=== PATIENT | male | born 1960 ===

== ENCOUNTER 2017-02-14 20:01 | Emergency (ER) | payer MEDICAID, MEDICARE ==
[~2017-02-14 20:01] MED LIST: AMLO10TA2 PO; METO50TA2 PO
--- NOTE | 2017-02-14 20:21 | PHYS DOC ---
General Chief Complaint: cough/sob Stated Complaint: lightheaded,SOA Time Seen by MD: 20:17 Source: patient, family (daughter) Exam Limitations: no limitations Problems: History of Present Illness Initial Comments Pt is 56/M to ED c/o SOB/cough/lightheaded. Pt states since yesterday morning he's had dry cough, feeling like he cannot take a deep breath, and malaise/lightheaded. Pt has h/o PA/CAD, states 2004 had PA was tx cardiac stents x 2. Again 2015 pt with CP and elevated troponin, balloon angioplasty x 2 vessels. Pt states he stopped taking meds about 5 months ago without physician consent. States he just relocated here to [place] from [place], has not established with PCP or internal audit manager since moving in with his daughter here locally. ED VS: 98.5, 92, 20, 133/85, 96% RA Past 24 hours symptoms are not at all similar to prior PA sx but are still CP equivalents of greater than 24 hours duration. Pt denies cp/arm or neck sx/diaphoresis/n/v/fever/chills/GERBER/myalgias. Former smoker, quit past year. Still uses marijuana. Timing/Duration: 24 hours Severity: moderate Modifying Factors: worse with movement, improves with rest Associated Symptoms: malaise, shortness of breath, other Allergies: Coded Allergies: Penicillins (Unverified Allergy, Unknown, Rash, 11/10/14) Past Medical History Medical History: other (dementia, HLP, HTN, chronic upper and lower back pain, spinal stenosis, CAD, DM, chronic pain) Surgical History: angioplasty (x2 2014), other (Coronary stents x 3 2003, R hand) Social History Smoker: cigarettes Alcohol: none Drugs: marijuana Review of Systems Constitutional: denies chills, denies diaphoresis, denies fever, denies malaise EENTM: denies eye pain, denies ear pain, nose congestiondenies throat pain, denies throat swelling Respiratory: coughdenies orthopnea, shortness of breathdenies stridor, wheezing Cardiovascular: denies chest pain, denies edema, denies palpitations, denies syncope Gastrointestinal: denies abdominal pain, denies constipation, denies diarrhea, denies nausea, denies vomiting Genitourinary: denies dysuria, denies frequency, denies hematuria Musculoskeletal: see HPI back paindenies joint swelling, denies neck pain Psychiatric/Neurological: denies headache, denies numbness, denies paresthesia , denies weakness Hematologic/Lymphatic: denies blood clots, denies easy bleeding, denies easy bruising Physical Exam General Appearance: WD/WN, no apparent distress Eyes: bilateral eye EOMI, bilateral eye PERRL, bilateral eye normal inspection Ear, Nose, Throat: hearing grossly normal, normal ENT inspection, normal pharynx Neck: non-tender, supple Respiratory: chest non-tender, no respiratory distress, decreased breath sounds , wheezing, other (wheeze b/l with decreased BS b/l and fair to good air movement) Cardiovascular: normal peripheral pulses, regular rate, rhythm, no edema Gastrointestinal: normal bowel sounds, non tender, soft Back: no CVA tenderness, no vertebral tenderness Extremities: normal range of motion, non-tender, normal inspection, no pedal edema, no calf tenderness Neurologic/Psychiatric: picker and packer II-XII nml as tested, no motor/sensory deficits, alert, normal mood/affect, oriented x 3 Skin: normal color, warm/dry Orders, Labs, Meds EKG: NSR 85 bpm, no STEMI Chest AP: COPD changes, no acute cardiopulmonary process Pertinent Labs: overall reassuring workup in ED. UDS + marijuana, lipase 1006 Further inquiry, pt denies abdominal pains, RUQ pain, n/v, no cholecystitis or pancreatitis symptoms. Pt offered CT/US evaluations, declined. Sx have been present over 24 hours, acute coronary syndrome ruled out. Pt with improved BS, faint diffuse wheeze, resolution of upper back discomfort with duoneb. I discussed likelihood sx COPD exacerbation. Discussed possible observation admission pt refuses is reassured not ACS. Agrees to establish care PCP cardio locally, he expressed agreement and understanding with treatment plan. Advised to stop smoking marijuana. Pt also understands he needs to f/u for lipase recheck next few days. Departure Time of Disposition: 23:12 Disposition: 01 HOME, SELF-CARE Diagnosis: COPD Exacerbation, Tobaccoism, elevated lipase Condition: STABLE Patient Instructions: Chronic Obstructive Pulmonary Disease Exacerbation, Easy- to-Read, Lipase, Smoking, You Can Quit, [id number] Additional Instructions: Rest, no strenuous activity. Stop smoking, seek medical assistance if necessary. Rx: albuterol nebulizer vials, prednisone, norco 5mg #10 You need to establish care and follow with primary care doctor and internal audit manager. Call tomorrow to schedule next available appointment. Return to ED with new or changing symptoms. JANELLE BIRMINGHAM DO Feb 14, 2017 20:21
--- NOTE | 2017-02-14 20:23 | EKG ---
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
[2017-02-14] MEDS ORDERED: NITROGLYCERIN SUBLINGUAL 0.4 MG BOTTLE OF 25. SL PRN (20:30)
[2017-02-14] MEDS ORDERED: ASPIRIN 81 MG TAB.CHEW PO ONE (20:45)
[2017-02-14 20:52] LABS: BASO # 0.1 x10^3/uL (0.0-0.2); BASO % 1 % (0-3); EOS # 0.2 x10^3/uL (0.0-0.7); EOS % 3 % (0-3); LYMPH # 2.1 x10^3/uL (1.0-4.8); LYMPH % 26 % (24-48); MEAN CORPUSCULAR HEMOGLOBIN 30 pg (25-35); MEAN CORPUSCULAR HGB CONC 33 g/dL (31-37); MEAN CORPUSCULAR VOLUME 91 fL (79-100); MONO # 0.8 x10^3/uL (0.0-1.1); MONO % 10 % (0-9); NEUT % 60 % (31-73); PLATELET COUNT 207 x10^3/uL (140-400); RED BLOOD COUNT 5.28 x10^6/uL (4.30-5.70); RED CELL DISTRIBUTION WIDTH 12.9 % (11.5-14.5); WHITE BLOOD COUNT 8.3 x10^3/uL (4.0-11.0)
[2017-02-14 21:08] LABS: AMPHETAMINE/METHAMPHETAMINE NEG (NEG); BARBITURATES NEG (NEG); BENZODIAZEPINES NEG (NEG); CANNABINOIDS POS (NEG); COCAINE NEG (NEG); METHADONE NEG (NEG); OPIATES NEG (NEG); PHENCYCLIDINE NEG (NEG)
[2017-02-14 21:15] LABS: POTASSIUM ISTAT 4.1 mmol/L (3.5-5.0)
[2017-02-14 21:15] LABS: ALBUMIN 3.9 g/dL (3.4-5.0); DIRECT BILIRUBIN 0.1 mg/dL (0.0-0.2); MAGNESIUM 2.1 mg/dL (1.8-2.4); TOTAL BILIRUBIN 0.5 mg/dL (0.2-1.0); TOTAL PROTEIN 7.8 g/dL (6.4-8.2)
[2017-02-14] MEDS ORDERED: IPRATRPIUM/ALBUTEROL 0.5/2.5MG 3 ML NEBU. NEB ONE (21:15)
[2017-02-14] MEDS ORDERED: methylPREDNISolone SOD SUCC PF 125 MG/2 ML VIAL. IV ONE (21:15)
[2017-02-14 21:26] LABS: BILIRUBIN,URINE NEG (NEG); CLARITY,URINE CLEAR; COLOR,URINE AMBER; GLUCOSE,URINE NEG (NEG); NITRITE,URINE NEG (NEG); UROBILINOGEN,URINE 0.2 mg/dL (0.2 mg/dL)
[2017-02-14 21:27] LABS: BACTERIA,URINE 0 /HPF (0-FEW); SQUAMOUS EPITHELIAL CELL,UR FEW /LPF; WBC,URINE OCC /HPF (0-4)
[2017-02-14 23:09] VITALS: BP 114/56
[2017-02-14] MEDS ORDERED: ALBU1.25 NEB (23:15)
[2017-02-14] MEDS ORDERED: HYDR-971 PO (23:15)
[2017-02-14] MEDS ORDERED: PRED20TA PO (23:15)
--- NOTE | 2017-02-15 08:37 | RAD ---
Examination: Single frontal view chest History: History of chest pain Comparison: None available Findings: The cardiomediastinal silhouette grossly appears unremarkable. There is no acute infiltrate or visualized pneumothorax identified. Impression: No acute cardiopulmonary findings.
== END 2017-02-14 23:20 | disposition home or self-care (01) ==
LOC: ER 20:01
DX: J44.1 Chronic obstructive pulmonary disease with (acute) exacerbation (principal); R74.8 Abnormal levels of other serum enzymes; I25.810 Atherosclerosis of coronary artery bypass graft(s) without angina pectoris; I10 Essential (primary) hypertension; I25.2 Old myocardial infarction; G89.29 Other chronic pain; F03.90 Unspecified dementia, unspecified severity, without behavioral disturbance, psychotic disturbance, mood disturbance, and anxiety; E78.5 Hyperlipidemia, unspecified; E11.9 Type 2 diabetes mellitus without complications; F17.210 Nicotine dependence, cigarettes, uncomplicated; Z87.891 Personal history of nicotine dependence; Z88.0 Allergy status to penicillin
CPT/HCPCS: 36415; 71010; 80047; 80076; 80305; 81001; 82553; 83690; 83735; 83880; 84484; 85027; 85610; 85730; 93005; 94640; 96374; 99285; J2930; J7620; G0481

== ENCOUNTER 2018-03-01 22:07 | Emergency (ER) | payer MEDICARE ==
[~2018-03-01] VITALS: Ht 182.9 cm; Wt 88.5 kg
[2018-03-01 22:07] VITALS: BP 0/0
[~2018-03-01 22:07] MED LIST changes: +ALBU1.25 NEB; +HYDR-971 PO; -METO50TA2 PO; +METO50TA6 PO; +PRED20TA PO
--- NOTE | 2018-03-01 22:23 | PHYS DOC ---
Past History Past Medical History: Dementia, High Cholesterol, Hypertension, Other Past Surgical History: Other Alcohol Use: None Drug Use: Marijuana Adult General Chief Complaint Chief Complaint: BACK PAIN OR INJURY HPI HPI Patient is a [age] year old [sex] who presents with [] Review of Systems Review of Systems Constitutional: Denies fever or chills [] Eyes: Denies change in visual acuity, redness, or eye pain [] HENT: Denies nasal congestion or sore throat [] Respiratory: Denies cough or shortness of breath [] Cardiovascular: No additional information not addressed in HPI [] GI: Denies abdominal pain, nausea, vomiting, bloody stools or diarrhea [] : Denies dysuria or hematuria [] Musculoskeletal: Denies back pain or joint pain [] Integument: Denies rash or skin lesions [] Neurologic: Denies headache, focal weakness or sensory changes [] Endocrine: Denies polyuria or polydipsia [] All other systems were reviewed and found to be within normal limits, except as documented in this note. Allergies Allergies Allergies Coded Allergies Type Severity Reaction Last Updated Verified Penicillins Allergy Unknown Rash 11/10/14 No Physical Exam Physical Exam Constitutional: Well developed, well nourished, no acute distress, non-toxic appearance. [] HENT: Normocephalic, atraumatic, bilateral external ears normal, oropharynx moist, no oral exudates, nose normal. [] Eyes: PERRLA, EOMI, conjunctiva normal, no discharge. [] Neck: Normal range of motion, no tenderness, supple, no stridor. [] Cardiovascular:Heart rate regular rhythm, no murmur [] Lungs & Thorax: Bilateral breath sounds clear to auscultation [] Abdomen: Bowel sounds normal, soft, no tenderness, no masses, no pulsatile masses. [] Skin: Warm, dry, no erythema, no rash. [] Back: No tenderness, no CVA tenderness. [] Extremities: No tenderness, no cyanosis, no clubbing, ROM intact, no edema. [] Neurologic: Alert and oriented X 3, normal motor function, normal sensory function, no focal deficits noted. [] Psychologic: Affect normal, judgement normal, mood normal. [] EKG EKG [] Radiology/Procedures Radiology/Procedures [] Course & Med Decision Making Course & Med Decision Making Pertinent Labs and Imaging studies reviewed. (See chart for details) [] Dragon Disclaimer Dragon Disclaimer This electronic medical record was generated, in whole or in part, using a voice recognition dictation system. Departure Departure: Impression: Primary Impression: Low back pain Additional Impressions: Drug-seeking behavior Sciatica Disposition: 07 AGAINST MEDICAL ADVICE Condition: STABLE Referrals: PCP,NO (PCP) Problem Qualifiers NGUYEN FALK MD Mar 01, 2018 22:23
== END 2018-03-01 22:21 | disposition left against medical advice (07) ==
LOC: ER 22:07
DX: M54.40 Lumbago with sciatica, unspecified side (principal); Z76.5 Malingerer [conscious simulation]; E78.00 Pure hypercholesterolemia, unspecified; I10 Essential (primary) hypertension; F12.10 Cannabis abuse, uncomplicated; F03.90 Unspecified dementia, unspecified severity, without behavioral disturbance, psychotic disturbance, mood disturbance, and anxiety; Z88.0 Allergy status to penicillin
CPT/HCPCS: 99281

== ENCOUNTER 2018-11-19 17:14 | Emergency (ER) | payer OTHER ==
[~2018-11-19] VITALS: Ht 182.9 cm; Wt 88.5 kg
[~2018-11-19 17:14] MED LIST changes: -AMLO10TA2 PO; +AMLO10TA6 PO; +HYDR-3165 PO; -HYDR-971 PO
[2018-11-19 17:23] VITALS: BP 156/81
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
--- NOTE | 2018-11-19 17:39 | EKG ---
[address] [address] Test Date: 2018-11-19 Test Time: 17:31:22 Pat Name: CAMACHO LANE Department: Room: Gender: M Respiratory Therapy Aide: : 1960 Requested By: BRIDGET REAL Order Number: [id number] Reading MD: Measurements Intervals [place] Rate: 78 P: 62 MA: 190 QRS: 54 QRSD: 80 T: 83 QT: 340 QTc: 391 Interpretive Statements SINUS RHYTHM QRS(T) CONTOUR ABNORMALITY CONSISTENT WITH ANTEROSEPTAL INFARCT PROBABLY OLD ABNORMAL ECG RI6.01 Unconfirmed report No previous ECG available for comparison
== END 2018-11-19 17:53 | disposition home or self-care (01) ==
LOC: ER 17:14
DX: R07.89 Other chest pain (principal); G89.11 Acute pain due to trauma; E78.00 Pure hypercholesterolemia, unspecified; I10 Essential (primary) hypertension; F03.90 Unspecified dementia, unspecified severity, without behavioral disturbance, psychotic disturbance, mood disturbance, and anxiety; Z95.5 Presence of coronary angioplasty implant and graft; Z88.0 Allergy status to penicillin; V49.49XA Driver injured in collision with other motor vehicles in traffic accident, initial encounter; Y93.89 Activity, other specified; Y92.488 Other paved roadways as the place of occurrence of the external cause; Y99.8 Other external cause status
CPT/HCPCS: 93005; 99283

== ENCOUNTER 2019-07-01 22:22 | Inpatient (IN) | payer MEDICARE, MEDICAID ==
[~2019-07-01] VITALS: Ht 182.9 cm; Wt 91.0 kg
[~2019-07-01 22:22] MED LIST changes: -AMLO10TA6 PO; +AMLO10TA8 PO
[2019-07-01] MEDS ORDERED: LABETALOL 20 MG/4 ML DISP.SYRIN. IVP ONE (23:30)
[2019-07-01] MEDS ORDERED: hydrALAZINE 20 MG/ML VIAL. ONE (23:42)
[2019-07-01] MEDS: hydrALAZINE 20 MG/ML VIAL. IV ONE (23:45)
[2019-07-01] MEDS: ASPIRIN 325 MG TABLET PO ONE (23:50)
[2019-07-01 23:59] LABS: BASO # 0.1 x10^3/uL (0.0-0.2); BASO % 1 % (0-3); EOS # 0.4 x10^3/uL (0.0-0.7); EOS % 5 % (0-3); LYMPH % 34 % (24-48); MEAN CORPUSCULAR HEMOGLOBIN 31 pg (25-35); MEAN CORPUSCULAR HGB CONC 34 g/dL (31-37); MEAN CORPUSCULAR VOLUME 91 fL (79-100); MONO # 0.9 x10^3/uL (0.0-1.1); MONO % 11 % (0-9); NEUT # 4.3 x10^3uL (1.8-7.7); NEUT % 49 % (31-73); PLATELET COUNT 209 x10^3/uL (140-400); RED BLOOD COUNT 5.16 x10^6/uL (4.30-5.70); RED CELL DISTRIBUTION WIDTH 13.4 % (11.5-14.5); WHITE BLOOD COUNT 8.8 x10^3/uL (4.0-11.0)
[2019-07-02 00:21] LABS: ALBUMIN/GLOBULIN RATIO 1.3 (1.0-1.7); CALCIUM 9.2 mg/dL (8.5-10.1); CREATININE 1.1 mg/dL (0.7-1.3); GFR 68.3; POTASSIUM 4.2 mmol/L (3.5-5.1); TOTAL BILIRUBIN 0.3 mg/dL (0.2-1.0); TOTAL PROTEIN 7.2 g/dL (6.4-8.2)
[2019-07-02] MEDS ORDERED: HEPARIN 25,000UTS/500ML PREMIX 500 ML IV PRN (01:00)
--- NOTE | 2019-07-02 01:03 | PHYS DOC ---
Past History Past Medical History: CAD, Hypertension Past Surgical History: Angioplasty Smoking: Cigarettes Alcohol Use: Rarely Drug Use: Marijuana Adult General Chief Complaint Chief Complaint: CHEST PAIN HPI HPI 59-year-old male with significant cardiac history presents with 2 day history of generalized chest pain with radiation to bilateral shoulders and associated shortness of breath. Denies any nausea, vomiting, or diaphoresis. Denies known trauma. Denies leg swelling or calf tenderness. Denies history of DVT or PE. Patient reports stent placement in August 2018 at [facility]. Patient reports he has not since followed with cardiology. Patient does report he has recently been out of his blood pressure medications over the last several days. Reports pain is currently resolved. Review of Systems Review of Systems Constitutional: Denies fever or chills Eyes: Denies redness or eye pain HENT: Denies nasal congestion or sore throat Respiratory: Denies cough; reports shortness of breath Cardiovascular: Reports chest pain; denies palpitations GI: Denies abdominal pain, nausea, or vomiting : Denies dysuria or hematuria Musculoskeletal: Denies back pain or joint pain Integument: Denies rash or skin lesions Neurologic: Denies headache, focal weakness or sensory changes Complete systems were reviewed and found to be within normal limits, except as documented in this note. Current Medications Current Medications Current Medications Medications (Trade) Dose Ordered Sig/[facility] Start Time Stop Time Status Last Admin Dose Admin Aspirin (Jc Aspirin) 325 mg 1X ONCE 07/01/19 22:45 07/01/19 22:46 DC 07/01/19 23:50 325 MG Hydralazine HCl (Apresoline) 10 mg 1X ONCE 07/01/19 23:45 07/01/19 23:46 DC Labetalol HCl (Normodyne) 10 mg 1X ONCE 07/01/19 23:30 07/01/19 23:43 DC Allergies Allergies Allergies Coded Allergies Type Severity Reaction Last Updated Verified Penicillins Allergy Unknown Rash 11/10/14 No Physical Exam Physical Exam Constitutional: Well developed, well nourished, no acute distress, non-toxic appearance HENT: Normocephalic, atraumatic, oropharynx moist Eyes: Conjunctiva normal, no discharge Neck: Normal range of motion, no tenderness, supple Cardiovascular: Heart rate normal, regular rhythm Lungs & Thorax: Bilateral breath sounds clear to auscultation, no wheezing Abdomen: Soft, no tenderness Skin: Warm, dry, no erythema, no rash Extremities: No tenderness, ROM intact, no edema Neurologic: Alert and oriented X 3, no focal deficits noted Psychologic: Affect normal, judgement normal Current Patient Data Vital Signs Vital Signs Date Time Temp Pulse Resp B/P (MAP) Pulse Ox O2 Delivery O2 Flow Rate FiO2 07/01/19 23:52 82 20 138/84 (102) 96 Room Air 07/01/19 22:27 98.0 Lab Results Laboratory Tests Test 07/01/19 22:45 07/01/19 23:55 White Blood Count 8.8 x10^3/uL (4.0-11.0) Red Blood Count 5.16 x10^6/uL (4.30-5.70) Hemoglobin 16.0 g/dL (13.0-17.5) Hematocrit 47.0 % (39.0-53.0) Mean Corpuscular Volume 91 fL (79-100) Mean Corpuscular Hemoglobin 31 pg (25-35) Mean Corpuscular Hemoglobin Concent 34 g/dL (31-37) Red Cell Distribution Width 13.4 % (11.5-14.5) Platelet Count 209 x10^3/uL (140-400) Neutrophils (%) (Auto) 49 % (31-73) Lymphocytes (%) (Auto) 34 % (24-48) Monocytes (%) (Auto) 11 % (0-9) H Eosinophils (%) (Auto) 5 % (0-3) H Basophils (%) (Auto) 1 % (0-3) Neutrophils # (Auto) 4.3 x10^3uL (1.8-7.7) Lymphocytes # (Auto) 3.0 x10^3/uL (1.0-4.8) Monocytes # (Auto) 0.9 x10^3/uL (0.0-1.1) Eosinophils # (Auto) 0.4 x10^3/uL (0.0-0.7) Basophils # (Auto) 0.1 x10^3/uL (0.0-0.2) Prothrombin Time 9.9 SEC (9.4-11.4) Prothrombin Time INR 1.0 (0.9-1.1) PTT 28 SEC (23-33) Sodium Level 140 mmol/L (136-145) Potassium Level 4.2 mmol/L (3.5-5.1) Chloride Level 103 mmol/L (98-107) Carbon Dioxide Level 27 mmol/L (21-32) Anion Gap 10 (6-14) Blood Urea Nitrogen 13 mg/dL (8-26) Creatinine 1.1 mg/dL (0.7-1.3) Estimated GFR (Cockcroft-Gault) 68.3 BUN/Creatinine Ratio 12 (6-20) Glucose Level 114 mg/dL (70-99) H Calcium Level 9.2 mg/dL (8.5-10.1) Magnesium Level 2.0 mg/dL (1.8-2.4) Total Bilirubin 0.3 mg/dL (0.2-1.0) Aspartate Amino Transferase (AST) 25 U/L (15-37) Alanine Aminotransferase (ALT) 31 U/L (16-63) Alkaline Phosphatase 94 U/L (46-116) Creatine Kinase 212 U/L (39-308) Creatine Kinase MB (Mass) 3.6 ng/mL (0.0-3.6) Creatine Kinase MB Relative Index 1.7 % (0-4) Troponin I Quantitative 0.091 ng/mL (0-0.055) H SK-Fva-Y-Type Natriuretic Peptide 391 pg/mL (0-124) H Total Protein 7.2 g/dL (6.4-8.2) Albumin 4.0 g/dL (3.4-5.0) Albumin/Globulin Ratio 1.3 (1.0-1.7) Lipase 152 U/L (73-393) D-Dimer (Dolores) 0.77 mg/L (0.00-0.50) H EKG EKG @2233 NSR at 85bpm, NO ST elevation, low voltage QRS, QRS 94ms, QT/QTc 368/438ms Radiology/Procedures Radiology/Procedures PROCEDURE: CT ANGIOGRAPHY CHEST EXAM: CT chest with contrast - pulmonary embolus protocol CLINICAL HISTORY: Chest pain, elevated d-dimer. COMPARISON: None. TECHNIQUE: CT of the chest following the administration of intravenous contrast during the pulmonary arterial phase. Axial, coronal and sagittal reformatted images were generated including MIP images. ---PQRS compliance statement - One or more of the following individualized dose reduction techniques were utilized for this study: 1. Automated exposure control 2. Adjustment of the mA and/or kV according to patient size 3. Use of iterative reconstruction technique--- FINDINGS: CHEST: Diagnostic quality: Adequate. Pulmonary emboli: None seen Right heart strain: None Pulmonary arteries: Normal in caliber. Heart is not enlarged. Coronary calcifications are seen. Several prominent mediastinal and hilar lymph nodes are seen, not enlarged by size criteria. No axillary lymphadenopathy. Calcified mediastinal and hilar lymph nodes, possibly from prior granulomatous disease. No pleural effusion or pneumothorax. 5 mm middle lobe lung nodule (series 4 image 117) is seen. A 1.3 x 0.9 cm lung nodule seen in the right lower lobe abutting the major fissure with dense central calcification. Emphysematous changes are seen. Visualized Upper abdomen: Upper abdomen is unremarkable. Bones: Degenerative changes of the spine are seen. IMPRESSION: 1. No evidence for acute pulmonary embolus. 2. 1.3 cm right lower lobe lung nodule is seen with central calcification. This may represent calcifying granuloma although lung mass is not excluded. This can be compared to prior CT is available to establish stability otherwise PET scan may would additional details. 3. 5 mm middle lobe lung nodule is also seen. 4. Emphysematous changes are seen. Electronically signed by: Chris Ruiz MD (07/02/2019 2:21 AM) [facility] Course & Med Decision Making Course & Med Decision Making Pertinent Labs and Imaging studies reviewed. (See chart for details) Patient with significant cardiac risk factors presents with report of chest pain for the last 2 days. Reports radiation to bilateral shoulders and associated shortness of breath. EKG stable. Labs obtained and posted to chart. Initial troponin slightly elevated. D-dimer also elevated. CTA chest obtained. Heparin bolus and drip initiated. HEART score 5. Patient requiring admission for further evaluation and treatment. Discussed with Dr. Baig (hospitalist) who is in agreement with admission. Consult placed for cardiology. Discussed findings and plan with patient and family, who acknowledge understanding and agreement. Dragon Disclaimer Dragon Disclaimer This electronic medical record was generated, in whole or in part, using a voice recognition dictation system. Departure Departure: Impression: Primary Impression: Chest pain Additional Impressions: Elevated troponin Elevated d-dimer Disposition: ADMITTED INPATIENT Admitting Physician: Lory Baig Condition: GUARDED Referrals: PCP,NO (PCP) HEART Score for Chest Pain PTs The HEART Score for CP Pts HEART Score for Chest Pain: HEART Score for Chest Pain Response (Comments) Value History Moderately Suspicious 1 ECG Normal 0 Age >45 - < 65 1 Risk Factors >3 Risk Factors or Hx CAD 2 Troponin >1-<3x Normal Limit 1 Total 5 Risk Factors: Risk Factors: DM, Current or recent (<one month) smoker, HTN, HLP, family history of CAD, obesity. Risk Scores: Score 0 - 3: 2.5% MACE over next 6 weeks - Discharge Home Score 4 - 6: 20.3% MACE over next 6 weeks - Admit for Clinical Observation Score 7 - 10: 72.7% MACE over next 6 weeks - Early Invasive Strategies Critical Care Time Critical care time was 30 minutes which includes time at bedside, spent in discussion of patient's care with specialists and/or family members, with interpretation of laboratory and/or radiological studies and is exclusive of procedures. Problem Qualifiers Primary Impression: Chest pain Chest pain type: unspecified Qualified Codes: R07.9 - Chest pain, unspecified NGUYEN QUARLES DO Jul 02, 2019 01:03
[2019-07-02] MEDS ORDERED: ONDANSETRON PF 4 MG/2 ML VIAL. IV PRN (01:15)
[2019-07-02] MEDS: IOHEXOL 350 MG/ML 100 ML VIAL. IV ONE (01:25)
[2019-07-02] MEDS ORDERED: CONTRAST GIVEN MC PRN (01:30)
[2019-07-02] MEDS: HEPARIN for IV BOLUS 10,000 UNIT/10 ML VIAL. IV ONE (02:00)
[2019-07-02] MEDS: HEPARIN 25,000UTS/500ML PREMIX 500 ML IV PRN (02:02)
[2019-07-02] MEDS: IV NORMAL SALINE 1,000ML 1,000 ML IV ONE (02:19)
--- NOTE | 2019-07-02 02:23 | RAD ---
EXAM: CT chest with contrast - pulmonary embolus protocol CLINICAL HISTORY: Chest pain, elevated d-dimer. COMPARISON: None. TECHNIQUE: CT of the chest following the administration of intravenous contrast during the pulmonary arterial phase. Axial, coronal and sagittal reformatted images were generated including MIP images. ---PQRS compliance statement - One or more of the following individualized dose reduction techniques were utilized for this study: 1. Automated exposure control 2. Adjustment of the mA and/or kV according to patient size 3. Use of iterative reconstruction technique--- FINDINGS: CHEST: Diagnostic quality: Adequate. Pulmonary emboli: None seen Right heart strain: None Pulmonary arteries: Normal in caliber. Heart is not enlarged. Coronary calcifications are seen. Several prominent mediastinal and hilar lymph nodes are seen, not enlarged by size criteria. No axillary lymphadenopathy. Calcified mediastinal and hilar lymph nodes, possibly from prior granulomatous disease. No pleural effusion or pneumothorax. 5 mm middle lobe lung nodule (series 4 image 117) is seen. A 1.3 x 0.9 cm lung nodule seen in the right lower lobe abutting the major fissure with dense central calcification. Emphysematous changes are seen. Visualized Upper abdomen: Upper abdomen is unremarkable. Bones: Degenerative changes of the spine are seen. IMPRESSION: 1. No evidence for acute pulmonary embolus. 2. 1.3 cm right lower lobe lung nodule is seen with central calcification. This may represent calcifying granuloma although lung mass is not excluded. This can be compared to prior CT is available to establish stability otherwise PET scan may would additional details. 3. 5 mm middle lobe lung nodule is also seen. 4. Emphysematous changes are seen. Electronically signed by: Chris Ruiz MD (07/02/2019 2:21 AM) [place] [id number]
[2019-07-02 02:40] VITALS: BP 154/88
[2019-07-02] MEDS ORDERED: TICA90TA PO (03:39)
[2019-07-02] MEDS ORDERED: ASPI-630 PO (03:39)
[2019-07-02] MEDS ORDERED: ATOR40TA59 PO (03:39)
[2019-07-02] MEDS ORDERED: LOSA25TA11 PO (03:39)
[2019-07-02] MEDS ORDERED: CARV25TA2 PO (03:39)
[2019-07-02 04:51] VITALS: BP 135/80
--- NOTE | 2019-07-02 07:30 | EKG ---
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
--- NOTE | 2019-07-02 08:43 | PDOC2 ---
CARDIAC CONSULT DATE OF CONSULT Date Of Consult DATE: 07/02/19 TIME: 08:39 REASON FOR CONSULT Reason for Consult Chest pain Elevated troponin REFERRING PHYSICIAN Referring Physician Dr. Herrera SOURCE Source: Chart review, Patient HPI History of Present Illness This is a 59 male who presented secondary chest pain. Patient reports pain has been intermittent for the last couple of days. Located across his central chest, radiated to bilateral shoulders. Describes as pressure. Associated with shortness of breath, diaphoresis, and dizziness. No nausea/vomiting or palpitations. Does report recent PRIEST. Patient reports pain to be very similar to what he previously experienced with NE in 2018. BP treated and started on heparin gtt. No further pain overnight. Had a history of CAD s/p PCI/stents. Most recently, presented as STEMI in August of 2018. Underwent PCI/stent of LAD. Had staged PCI of OM1 at that time. Presented back to the hospital 2 days later as STEMI again. Underwent cardiac cath that reveal in-stent rethrombosis of the LAD and OM1 stent. Patient reports compliance with DAPT with ASA and Plavix at that time. Plavix was changed to Brilinta at that time due to possible resistance. Unfortunately, patient has failed to follow up in our office following. Reports compliance with ASA and Brilinta. Did run out of Coreg about 2 weeks ago. Reports he had difficulty getting primary care providers to refills his medication because they always want him to come into the office to be seen. PAST MEDICAL HISTORY Cardiovascular: CAD, HTN, NE, hyperipidemia Endocrine: Diabetes PAST SURGICAL HISTORY Past Surgical History: Other (PCI/stent ) FAMILY HISTORY Family History: Cancer, Heart Disease SOCIAL HISTORY Smoke: 1 pack per day ALCOHOL: none Drugs: None Lives: Alone CURRENT MEDICATIONS Current Medications Current Medications Aspirin (Jc Aspirin) 325 mg 1X ONCE PO Last administered on 07/01/19at 23:50; Start 07/01/19 at 22:45; Stop 07/01/19 at 22:46; Status DC Labetalol HCl (Normodyne) 10 mg 1X ONCE IVP ; Start 07/01/19 at 23:30; Stop 07/01/19 at 23:43; Status DC Hydralazine HCl (Apresoline) 20 mg STK-MED ONCE .ROUTE ; Start 07/01/19 at 23:42; Stop 07/01/19 at 23:43; Status DC Hydralazine HCl (Apresoline) 10 mg 1X ONCE IV ; Start 07/01/19 at 23:45; Stop 07/01/19 at 23:46; Status DC Heparin Sodium (Porcine) (Heparin Sodium) 4,000 unit 1X ONCE IV Last administered on 07/02/19at 02:00; Start 07/02/19 at 01:15; Stop 07/02/19 at 01:17; Status DC Heparin Sodium/ Dextrose 500 ml @ 0 mls/hr CONT PRN IV SEE I/O RECORD; Start 07/02/19 at 01:00; Stop 07/02/19 at 01:05; Status DC Ondansetron HCl (Zofran) 4 mg PRN Q4HRS PRN IV NAUSEA/VOMITING; Start 07/02/19 at 01:15; Stop 07/03/19 at 01:14 Fentanyl Citrate (Fentanyl 2ml Vial) 50 mcg PRN Q2HR PRN IV PAIN; Start 07/02/19 at 01:00; Stop 07/03/19 at 00:59 Heparin Sodium/ Dextrose 500 ml @ 0 mls/hr CONT PRN IV SEE I/O RECORD Last administered on 07/02/19at 02:02; Start 07/02/19 at 01:15 Sodium Chloride 1,000 ml @ 100 mls/hr 1X ONCE IV Last administered on 07/02/19at 02:19; Start 07/02/19 at 01:15; Stop 07/02/19 at 11:14 Iohexol (Omnipaque 350 Mg/ml) 100 ml 1X ONCE IV Last administered on 07/02/19at 01:25; Start 07/02/19 at 01:30; Stop 07/02/19 at 01:31; Status DC Info (Do NOT chart on this entry -- for MONITORING) 1 each PRN DAILY PRN MC SEE COMMENTS; Start 07/02/19 at 01:30; Stop 07/04/19 at 01:29 Active Scripts Active Reported Aspirin 81 Mg Tab.chew 81 Mg PO DAILY Atorvastatin Calcium 40 Mg Tablet 40 Mg PO QHS Carvedilol 25 Mg Tablet 25 Mg PO BID Losartan Potassium (Losartan Potassium) 25 Mg Tablet 25 Mg PO DAILY Brilinta (Ticagrelor) 90 Mg Tablet 90 Mg PO BID ALLERGIES Allergies: Coded Allergies: Penicillins (Unverified Allergy, Unknown, Rash, 11/10/14) ROS Review of Systems 14 point ROS conducted with pertinent positives noted above in HPI. Respiratory: No: Cough PHYSICAL EXAM General: Alert, Oriented X3, Cooperative, No acute distress HEENT: Atraumatic, Mucous membr. moist/pink Lungs: Clear to auscultation, Normal air movement Heart: Regular rate, Normal S1, Normal S2, No murmurs Abdomen: Soft, No tenderness Extremities: No edema, Normal pulses Skin: No breakdown Neuro: Normal speech, Sensation intact Psych/Mental Status: Mental status NL, Other (irritable ) MUSCULOSKELETAL: Osteoarthritic changes both hands VITALS Vital Signs Vital Signs Date Time Temp Pulse Resp B/P (MAP) Pulse Ox O2 Delivery O2 Flow Rate FiO2 07/02/19 05:00 69 18 Room Air 07/02/19 04:51 135/80 (98) 97 07/02/19 02:40 97.8 LABS LABS Laboratory Tests Test 07/01/19 22:45 07/01/19 23:55 07/02/19 04:25 White Blood Count 8.8 x10^3/uL (4.0-11.0) Red Blood Count 5.16 x10^6/uL (4.30-5.70) Hemoglobin 16.0 g/dL (13.0-17.5) Hematocrit 47.0 % (39.0-53.0) Mean Corpuscular Volume 91 fL (79-100) Mean Corpuscular Hemoglobin 31 pg (25-35) Mean Corpuscular Hemoglobin Concent 34 g/dL (31-37) Red Cell Distribution Width 13.4 % (11.5-14.5) Platelet Count 209 x10^3/uL (140-400) Neutrophils (%) (Auto) 49 % (31-73) Lymphocytes (%) (Auto) 34 % (24-48) Monocytes (%) (Auto) 11 % (0-9) Eosinophils (%) (Auto) 5 % (0-3) Basophils (%) (Auto) 1 % (0-3) Neutrophils # (Auto) 4.3 x10^3uL (1.8-7.7) Lymphocytes # (Auto) 3.0 x10^3/uL (1.0-4.8) Monocytes # (Auto) 0.9 x10^3/uL (0.0-1.1) Eosinophils # (Auto) 0.4 x10^3/uL (0.0-0.7) Basophils # (Auto) 0.1 x10^3/uL (0.0-0.2) Prothrombin Time 9.9 SEC (9.4-11.4) Prothromb Time International Ratio 1.0 (0.9-1.1) Activated Partial Thromboplast Time 28 SEC (23-33) Sodium Level 140 mmol/L (136-145) Potassium Level 4.2 mmol/L (3.5-5.1) Chloride Level 103 mmol/L (98-107) Carbon Dioxide Level 27 mmol/L (21-32) Anion Gap 10 (6-14) Blood Urea Nitrogen 13 mg/dL (8-26) Creatinine 1.1 mg/dL (0.7-1.3) Estimated GFR (Cockcroft-Gault) 68.3 BUN/Creatinine Ratio 12 (6-20) Glucose Level 114 mg/dL (70-99) Calcium Level 9.2 mg/dL (8.5-10.1) Magnesium Level 2.0 mg/dL (1.8-2.4) Total Bilirubin 0.3 mg/dL (0.2-1.0) Aspartate Amino Transf (AST/SGOT) 25 U/L (15-37) Alanine Aminotransferase (ALT/SGPT) 31 U/L (16-63) Alkaline Phosphatase 94 U/L (46-116) Creatine Kinase 212 U/L (39-308) Creatine Kinase MB (Mass) 3.6 ng/mL (0.0-3.6) Creatine Kinase MB Relative Index 1.7 % (0-4) Troponin I Quantitative 0.091 ng/mL (0-0.055) 0.197 ng/mL (0-0.055) QP-Oxc-Z-Type Natriuretic Peptide 391 pg/mL (0-124) Total Protein 7.2 g/dL (6.4-8.2) Albumin 4.0 g/dL (3.4-5.0) Albumin/Globulin Ratio 1.3 (1.0-1.7) Lipase 152 U/L (73-393) D-Dimer (Dolores) 0.77 mg/L (0.00-0.50) ECHOCARDIOGRAM Echocardiogram <Conclusion> The left ventricular systolic function is normal and the ejection fraction is within normal range. The Ejection Fraction is 55%. There is normal LV segmental wall motion. DATE: 08/06/18 1312 STRESS TEST Stress Test Conclusion 1. Regadenoson cardioisotope stress test showed mixed perfusion defect involving the distal inferior wall and the entire apical wall consistent with small infarct and small to moderate amount of ischemia. 2. Mild global left ventricle systolic dysfunction and moderate anteroapical wall hypokinesis with ejection fraction calculated at 38%. 3. Intermediate risk for cardiac events. DATE: 08/06/18 1440 HEART CATH Heart Cath DATE: 08/17/18 1032 Coronaries. Left main. The left main had a distal 10% taper. Left anterior descending. The LAD was a moderate size vessel. It had a osteal 40% lesion. The first diagonal vessel had a patent stent present. In the mid to distal LAD there was a patent stent present. The proximal midportion had a hazy greater than 90% lesion. Left circumflex. The left circumflex is a moderate size vessel. Distally it had a 25% lesion. Obtuse marginal 1 was previously stented with a proximal 80% in- stent lesion. Right coronary artery. The right coronary artery had a proximal to mid area that appeared to be a chronic occlusion with distal collateralization via collaterals. <Conclusion> Severe single-vessel coronary artery disease with a greater than 90% hazy lesion in the mid LAD. Patent stents in the mid to distal LAD and first diagonal branch. 80% lesion in an obtuse marginal 1 stent. Right coronary artery with a chronic occlusion with distal collateralization. Successful drug-eluting stent placement to the mid LAD lesion decreasing a greater than 90% lesion to 0%. DATE: 08/18/18 1720 Findings IFR measurement of the ostial LAD/ left main lesion was normal at 0.93. Previously placed stent in the LAD 2 days prior was widely patent. An 80-85% restenosed obtuse marginal stent was redilated as above with less than 10% residual lesion. <Conclusion> Nonsignificant IFR measurement of an LAD ostial lesion. Widely patent mid LAD stent. Successful balloon angioplasty of the obtuse marginal 1 restenotic stent decreased in the 80-85% lesion to less than 10%. Findings. Hemodynamics. Aortic root pressure of 108/78. Coronaries. Left main. The left main had a distal 15-20% area of narrowing. Left anterior descending. The LAD was a moderately large vessel. It had an ostial 40% lesion. Stents throughout the first diagonal were patent. It had up mid occlusion the site of a previous stent. Other stents were patent and extended quite distally into the vessel. Left circumflex. The left circumflex is a moderate size vessel. It had a mid 35% lesion. Had a distal 65-70% lesion. Obtuse marginal 1 which had a previously placed stent which was re-ballooned several days prior to the catheter had reoccluded. Right coronary artery. The right coronary had a proximal chronic occlusion with good distal collateralization. DATE: 08/22/18 1723 <Conclusion> Acutely closed LAD in the mid section at the site of a recently placed stent. Occluded obtuse marginal 1 vessel in the site of a previous balloon angioplasty of the restenotic stent 15-20% left main lesion. Ostial 40% LAD lesion. Of note an IFR measurement across the left main to the mid LAD earlier in the week was normal. Left circumflex additional lesions of a mid 35% and a more distal 65-70% Chronically occluded right coronary artery with good collateralization Successful opening with balloon angioplasty of the LAD occlusion with a 0% residual. Successful balloon angioplasty of the occluded obtuse marginal branch stent with a 20% residual. ASSESSMENT/PLAN Assessment/Plan 1. Chest pain, concerns for UA 2. CAD s/p remote PCI/stent and most recent PCI/stent to the LAD and angioplasty to the OM1 as noted above. CHANNELER of RCA with good collaterals. 3. Mild troponin elevation; highest 0.385 4, Accelerated hypertension; now well controlled. Patient has been out of Coreg for 2 weeks 5. Hyperlipemia; statin 6. Tobaccoism; discussed/encouraged cessation. Patient not interested at this time. 7. Noncompliance; failed f/u in the office Recommendations Echo to assess LV systolic function Resume secondary prevention measures Trend troponin lipid panel Discussed conservative versus aggressive measures given significant history/risk factors and presenting symptoms with mild troponin elevation. Patient initial reluctant to pursue further ischemic workup, despite family encouragement. Third troponin slightly increased at 0.385. Patient would now like to proceed with further evaluation with cardiac catheterization. R/b/a discussed and he is agreeable to proceed. Will transfer to [facility] for further LHC later this afternoon. Continue heparin gtt. NPO LEIDA HATHAWAY APRN Jul 02, 2019 08:43
[2019-07-02 11:49] VITALS: BP 135/78
--- NOTE | 2019-07-23 14:27 | SSS ---
ADMIT DATE: HISTORY OF PRESENT ILLNESS: This is a 59-year-old male patient who presented to the Emergency Room with chest pain. He reports his pain has been intermittent for the last couple of days, located across his central chest, radiating to bilateral shoulders, described it as pressure associated with shortness of breath, diaphoresis, and dizziness. No nausea, no vomiting, no palpitation. He does report recent dyspnea on exertion. His pain is very similar to what he previously experienced with myocardial infarction in 2018. His blood pressure was elevated and was treated and he was started on a heparin drip and was admitted initially to [facility] where he has had 3 sets of cardiac enzyme. First troponin was 0.091, second was 0.197 and the third was 0.385 and he was actually seen by the Cardiology nurse practitioner and a decision was made to transfer him to [facility] for cardiac catheterization. PAST MEDICAL HISTORY: Significant for coronary artery disease, status post PCI with stent deployment. At that time, he presented with [id number] myocardial infarction in 08/2018, underwent PCI and stent to left anterior descending, had staged PCI to obtuse marginal 1 at that time. He presented back to the hospital 2 days later as [id number] myocardial infarction, again underwent cardiac catheterization that revealed in-stent re-thrombosis of the left anterior descending and obtuse marginal stent. The patient reports compliance with his aspirin and Plavix. At that time, his Plavix was changed to Brilinta due to possible resistance; however, he failed to follow with Cardiology office. He said that he ran out of his Coreg about 2 weeks prior to admission. Other medical problems include hypertension, hyperlipidemia as well as type 2 diabetes. PAST SURGICAL HISTORY: Significant for PCI with stent deployment. FAMILY HISTORY: Positive for heart disease and cancer. SOCIAL HISTORY: He lives alone. He smokes a pack a day, does not drink alcohol or use any recreational drugs. ALLERGIES: HE IS ALLERGIC TO PENICILLIN. MEDICATIONS: He is on following medications: He is on Brilinta 90 mg twice a day, atorvastatin 40 mg at bedtime, carvedilol 25 mg twice a day, losartan potassium 25 mg once a day and aspirin 81 mg once a day. PHYSICAL EXAMINATION: GENERAL: On arrival to the hospital, he looked well and was clearly in no apparent respiratory distress. No pallor, jaundice, cyanosis from thyromegaly. No jugular venous distention. No lower limb edema. VITAL SIGNS: His heart rate was 68, blood pressure was 135/78, temperature was 97.7, respiratory rate was 20, and oxygen saturation was 96%. HEAD, EYES, EARS, NOSE AND THROAT: Normocephalic, atraumatic. NECK: Supple. HEART: Showed normal first and second heart sounds. No gallop, rub or murmurs. CHEST: Clear to auscultation. No crepitation or rhonchi. ABDOMEN: Distended, soft, nontender. No guarding or rigidity. No organomegaly. All hernial orifices are intact and bowel sounds normal. NEUROLOGIC: He was awake, alert, responding appropriately. All the cranial nerves intact. EXTREMITIES: He moves extremities without difficulty. LABORATORY DATA: His lab work on admission showed that his serum sodium was 140, potassium 4.2, chloride 103, bicarbonate 27, anion gap of 10, BUN 13, creatinine 1.1, estimated GFR was 68 mL per minute, his glucose 114, calcium was 9.2, magnesium was 2 mg/dL. Total bilirubin, AST, ALT, alkaline phosphatase were normal. His total protein was 7.2, albumin 4, and serum lipase 152. His first troponin was 0.091, second one has risen to 0.197 and the third was 0.385. His white cell count was 8800, hemoglobin 16, hematocrit 47, MCV 91, and platelet count of 209,000. His prothrombin time is 9.9, INR 1, aPTT was 28. D-dimer was 0.77. ASSESSMENT AND PLAN: The patient was started on a heparin drip and was transferred to [facility] yet again with chest pain concerning for unstable angina. He has coronary artery disease, status post remote PCI with stent deployment, accelerated hypertension, hyperlipidemia, tobaccoism and noncompliance. MUNIRA EDWARDS MD DR: AKBAR/tevin JOB#: [id number] / [id number]
== END 2019-07-02 13:45 | disposition short-term general hospital (02) | DRG 303 ==
LOC: ER 22:22 → 1 SOUTH 07-02 01:00
PROVIDERS: ADMIT Internal Medicine; ATTEND Internal Medicine
DX: I25.110 Atherosclerotic heart disease of native coronary artery with unstable angina pectoris (principal); F17.210 Nicotine dependence, cigarettes, uncomplicated; I10 Essential (primary) hypertension; E78.5 Hyperlipidemia, unspecified; I25.82 Chronic total occlusion of coronary artery; E11.9 Type 2 diabetes mellitus without complications; Z91.19 Patient's noncompliance with other medical treatment and regimen; Z88.0 Allergy status to penicillin; Z98.61 Coronary angioplasty status; I25.2 Old myocardial infarction; Z80.9 Family history of malignant neoplasm, unspecified; Z82.49 Family history of ischemic heart disease and other diseases of the circulatory system
CPT/HCPCS: 36415; 71275; 80053; 82553; 83690; 83735; 83880; 84484; 85025; 85379; 85610; 85730; 93005; 96365; 96376; J1644; Q9967; 99291-25; J7030